=== PATIENT | male | born 1960 | race African-American/Black ===

== ENCOUNTER 2018-03-27 09:06 | Day surgery (SDC) | payer OTHER ==
[~2018-03-27 09:06] MED LIST: EPHEDrine SULFATE 50 MG/5 ML SYG
[2018-03-27] MEDS: morphine 2 MG INJ IV (10:29)
[2018-03-27] MEDS ORDERED: FENTAnyl 50 MCG/ML VIAL IV ×3 (10:30→11:30)
[2018-03-27] MEDS: ONDANSETRON 4 MG INJ IV ×3 (10:45→13:16)
[2018-03-27] MEDS ORDERED: FENTAnyl 50 MCG/ML VIAL (11:12)
[2018-03-27] MEDS ORDERED: MIDAZOLAM 1 MG/ML 2 ML INJ (11:12)
[2018-03-27] MEDS ORDERED: PROPOFOL 20 ML (11:12)
[2018-03-27] MEDS ORDERED: ROCURONIUM 50 MG INJ (11:12)
[2018-03-27] MEDS ORDERED: DEXAMETHASONE 4 MG/ML 1 ML INJ (11:14)
[2018-03-27] MEDS ORDERED: METOCLOPRAMIDE 10 MG INJ (11:14)
[2018-03-27] MEDS ORDERED: ONDANSETRON 4 MG INJ (11:14)
[2018-03-27 11:16] LABS: ADD MAN DIFF? NO
[2018-03-27 11:19] LABS: BASOPHILS % 0.2 % (0.0-2.0); EOSINOPHILS % 0.7 % (0.0-7.0); HEMATOCRIT 32.5 % (42.0-52.0); HEMOGLOBIN 11.2 g/dl (14.0-18.0); LYMPHOCYTES # 2.7 10^3/ul (0.8-2.9); LYMPHOCYTES % 47.3 % (15.0-51.0); MEAN CORPUSCULAR HGB CONC 34.5 g/dl (32.0-37.0); MEAN CORPUSCULAR VOLUME 95.9 fl (82.0-101.0); MONOCYTE # 0.7 10^3/ul (0.3-0.9); MONOCYTES % 12.7 % (0.0-11.0); NEUTROPHIL # 2.2 10^3/ul (1.6-7.5); NEUTROPHILS % 38.9 % (39.0-77.0); PLATELET COUNT 453 10^3/UL (140-415); RED BLOOD COUNT 3.39 10^6/ul (4.70-6.10); RED CELL DISTRIBUTION WIDTH 15.8 % (11.5-14.5)
[2018-03-27 11:19] LABS: WHITE BLOOD COUNT 5.7 10^3/ul (4.8-10.8)
[2018-03-27] MEDS ORDERED: EPHEDrine SULFATE 50 MG/5 ML SYG IV (11:30)
[2018-03-27] MEDS ORDERED: hydrALAzine 20 MG INJ IV (11:30)
[2018-03-27] MEDS ORDERED: LABETALOL HCL 20MG INJ IV (11:30)
[2018-03-27] MEDS ORDERED: HYDROmorphONE (0.2 MG/ML) 10ML SYG IV ×2 (11:30)
[2018-03-27] MEDS ORDERED: OXYCODONE/ACETAMINOPHEN (5/325) TAB PO ×2 (11:30)
[2018-03-27] MEDS ORDERED: DIPHENHYDRAMINE 50 MG INJ IV (11:30)
[2018-03-27 11:40] LABS: INR 1.05; PROTIME 13.8 Sec (11.9-14.9); PT RATIO 1.1
[2018-03-27 11:41] LABS: PARTIAL THROMBOPLASTIN TIME 31.9 Sec (25.0-35.0)
[2018-03-27] MEDS ORDERED: LABETALOL HCL 20MG INJ (11:41)
[2018-03-27] MEDS ORDERED: CEFAZOLIN 1 GM INJ (11:41)
[2018-03-27 11:50] LABS: ANION GAP 11 (8-16); CARBON DIOXIDE 22 mmol/L (21-31); CHLORIDE 111 mmol/L (97-110); GLUCOSE 110 mg/dl (70-220)
[2018-03-27 11:55] LABS: BLOOD UREA NITROGEN 10 mg/dl (7-20); CALCIUM 9.4 mg/dl (8.4-10.2); POTASSIUM 4.4 mmol/L (3.5-5.1); SODIUM 140 mmol/L (135-144)
[2018-03-27] MEDS ORDERED: SUGAMMADEX SODIUM 200 MG/2 ML VIAL IV (12:05)
[2018-03-27] MEDS ORDERED: PHENYLephrine (100 MCG/ML) 5ML SYG (12:22)
[2018-03-27] MEDS: HYDROmorphONE (0.2 MG/ML) 10ML SYG IV ×3 (12:40→13:01)
[2018-03-27] MEDS: MEPERIDINE 25 MG INJ IV (12:44)
[2018-03-27] MEDS: METOCLOPRAMIDE 10 MG INJ IV (12:57)
[2018-03-27] MEDS: FENTAnyl 50 MCG/ML VIAL IV (13:07)
== END 2018-03-27 14:47 | disposition home or self-care (01) ==
LOC: GIL 09:06 → SDS 09:06 → GIL 14:47
DX: K86.89 Other specified diseases of pancreas (principal); I10 Essential (primary) hypertension; E78.5 Hyperlipidemia, unspecified
CPT/HCPCS: 43264; 71045; 74330; 80048; 85025; 85610; 85730; 93005

== ENCOUNTER 2019-04-25 08:59 | Day surgery (SDC) | payer OTHER ==
[2019-04-25] MEDS ORDERED: IOHEXOL 300MG/ML 30 ML BTL (12:07)
[2019-04-25] MEDS ORDERED: HYDROmorphONE 2 MG/ML SYG (12:15)
[2019-04-25] MEDS ORDERED: PROPOFOL 20 ML (12:15)
[2019-04-25] MEDS ORDERED: SUCCINYLCHOLINE CHLORIDE 100 MG/5 ML SYG IV (12:15)
[2019-04-25] MEDS ORDERED: ROCURONIUM 50 MG INJ (12:15)
[2019-04-25] MEDS ORDERED: SUGAMMADEX SODIUM 200 MG/2 ML VIAL IV (12:43)
[2019-04-25] MEDS ORDERED: MEPERIDINE 25 MG INJ IV (13:00)
[2019-04-25] MEDS ORDERED: hydrALAzine 20 MG INJ IV (13:00)
[2019-04-25] MEDS ORDERED: ALBUTEROL 0.083% (NEB) 2.5 MG/3 ML AMP HHN (13:00)
[2019-04-25] MEDS ORDERED: LABETALOL HCL 20MG INJ IV (13:00)
[2019-04-25] MEDS ORDERED: HYDROmorphONE 1 MG/5 ML IV SYRINGE IV ×2 (13:00)
[2019-04-25] MEDS ORDERED: ONDANSETRON 4 MG INJ IV (13:00)
[2019-04-25] MEDS: METOCLOPRAMIDE 10 MG INJ IV (13:30)
== END 2019-04-25 14:09 | disposition home or self-care (01) ==
LOC: GIL 08:59 → SDS 08:59 → GIL 14:09
DX: Z46.59 Encounter for fitting and adjustment of other gastrointestinal appliance and device (principal); I10 Essential (primary) hypertension
CPT/HCPCS: 43275; 74330